=== PATIENT | female | born 1990 | race African-American/Black ===

== ENCOUNTER 2020-10-22 18:16 | Emergency (ER) | payer OTHER ==
[~2020-10-22] VITALS: Ht 162.6 cm; Wt 72.6 kg
[2020-10-22 18:16] VITALS: BP_SYST 132
--- NOTE | 2020-10-22 18:20 | NUR ---
Patient to ER bed 2 to gown for evaluation. Side rails up.
--- NOTE | 2020-10-22 18:25 | NUR ---
pt came into ER with complaint of SOB and non radiating chest pain 8/10 x3days. pt is AAOx4, ambulatory and able to speak in full sentences. Lung CTA. pt reports she took tylenol last night for the pain and it was unrelieved. pt resting in [facility].
--- NOTE | 2020-10-22 18:26 | NUR ---
ER at bedside examining patient.
[2020-10-22 19:00] LABS: BASOPHILS # (AUTO) 0.1 K/uL (0.0-0.2); BASOPHILS % (AUTO) 0.4 % (0.0-2.0); EOSINOPHILS # (AUTO) 0.2 K/uL (0.0-0.4); EOSINOPHILS % (AUTO) 1.2 % (0.0-4.0); HEMATOCRIT 31.1 % (36-48); HEMOGLOBIN 9.7 g/dL (12.0-16.0); LYMPHOCYTES # (AUTO) 2.1 K/uL (1.0-5.5); LYMPHOCYTES % (AUTO) 16.7 % (20.5-51.5); MEAN CORPUSCULAR HEMOGLOBIN 20 pg (27-31); MEAN CORPUSCULAR HGB CONC 31 % (32-36); MEAN CORPUSCULAR VOLUME 63 fL (79.0-98.0); NEUTROPHILS # (AUTO) 9.1 K/uL (1.8-7.7); NEUTROPHILS % (AUTO) 73.7 % (40.0-70.0); PLATELET COUNT (AUTO) 394 K/uL (130-430); RED BLOOD CELL COUNT(AUTO) 4.96 MIL/uL (4.2-6.2); RED CELL DISTRIBUTION WIDTH 17.3 % (9.0-15.0); WHITE BLOOD COUNT (AUTO) 12.4 K/uL (4.8-10.8)
[2020-10-22 19:11] LABS: CALCIUM 8.9 mg/dL (8.4-11.0); CREATININE 0.77 mg/dL (0.55-1.30); POTASSIUM 3.7 mmol/L (3.5-5.1)
--- NOTE | 2020-10-22 19:13 | NUR ---
care endorsed to Sung BAÑUELOS
--- NOTE | 2020-10-22 19:40 | NUR ---
Pt stated " feeling slightly better " pt requested for a small amount of ice water
[2020-10-22 20:14] LABS: TOTAL BILIRUBIN 0.7 mg/dL (0.0-1.0)
[2020-10-22 20:15] LABS: ALBUMIN 3.4 g/dL (3.4-4.8)
[2020-10-22 21:15] VITALS: BP_SYST 132
--- NOTE | 2020-10-22 21:15 | NUR ---
Patient given written and verbal discharge instructions and verbalizes understanding. ER MD discussed with patient the results and treatment provided. Patient in stable condition. ID arm band removed. IV catheter removed intact and dressing applied, no active bleeding. Patient educated on pain management and to follow up with PMD. Pain Scale 0/10 Opportunity for questions provided and answered.
== END 2020-10-22 21:15 | disposition home or self-care (01) ==
LOC: SED 18:16
DX: R07.9 Chest pain, unspecified (principal); R06.02 Shortness of breath
CPT/HCPCS: 36415; 71045; 80053; 81025; 84484; 84703; 85025; 85379; 93005; 99285